=== PATIENT | male | born 1945 | race Two or more races ===

== ENCOUNTER → 2018-04-29 | Outpatient (CLI) | payer MEDICARE, MEDICAID | END | disposition home or self-care (01) | LOC: CVU 15:00 | PROVIDERS: ATTEND Family Medicine | DX: I70.203 Unspecified atherosclerosis of native arteries of extremities, bilateral legs (principal); I10 Essential (primary) hypertension; E78.5 Hyperlipidemia, unspecified | CPT/HCPCS: 93922; 93925 ==

== ENCOUNTER 2018-06-29 05:53 | Day surgery (SDC) | payer MEDICARE, MEDICAID ==
[2018-06-26 10:03] LABS: ANION GAP 9 mmol/L (5-15); CALCIUM 8.8 mg/dL (8.5-10.1); CHLORIDE 108 mmol/L (98-107); CREATININE 0.76 mg/dL (0.7-1.3)
[2018-06-26 10:11] LABS: BASOPHILS # (AUTO) 0.04 x10^3/uL (0-0.1); BASOPHILS % (AUTO) 1 % (0-1); EOSINOPHILS # (AUTO) 0.17 x10^3/uL (0-0.4); EOSINOPHILS % (AUTO) 2 % (1-7); LYMPHOCYTES # (AUTO) 2.15 x10^3/uL (1-3.4); LYMPHOCYTES % (AUTO) 24 % (22-44); MD NO; MEAN CORPUSCULAR HEMOGLOBIN 32.1 pg (27.5-34.5); MEAN CORPUSCULAR VOLUME 94.6 fL (81-97); MEAN PLATELET VOLUME 7.7 fL (7.4-10.4); MONOCYTES # (AUTO) 0.52 x10^3/uL (0.2-0.8); MONOCYTES % (AUTO) 6 % (2-9); NEUTROPHILS # (AUTO) 5.98 x10^3/uL (1.8-6.8); NEUTROPHILS % (AUTO) 68 % (42-75); PLATELET COUNT 459 x10^3/uL (130-400); RED BLOOD COUNT 4.56 x10^6/uL (4.38-5.82); RED CELL DISTRIBUTION WIDTH 13.9 % (9.4-14.8)
[~2018-06-29] VITALS: Ht 157.5 cm; Wt 65.6 kg
[~2018-06-29 05:53] MED LIST: CELEBREX PO; IBUP-1223 PO; LISI40TA PO; SIMV40TA3 PO
[2018-06-29 07:21] VITALS: BP 177/77
[2018-06-29] MEDS ORDERED: D5%-0.45% NACL 1,000 ML IV SCH (07:24)
[2018-06-29] MEDS ORDERED: FENTANYL PF 100 MCG/2ML ONE (08:10)
[2018-06-29] MEDS ORDERED: NITROGLYCERIN 5 MG/ML, 10ML ONE (08:11)
[2018-06-29] MEDS ORDERED: MIDAZOLAM 1 MG/ML, 5ML ONE (08:11)
[2018-06-29] MEDS ORDERED: FLUMAZENIL 0.1 MG/1 ML, 5ML ONE (08:11)
[2018-06-29] MEDS ORDERED: NALOXONE 1 MG/ML, 2ML ONE (08:11)
[2018-06-29] MEDS ORDERED: HEPARIN 1,000 UNITS/ML, 10ML ONE (08:11)
[2018-06-29] MEDS ORDERED: PROTAMINE SULFATE 10 MG/ML, 25ML ONE (08:11)
[2018-06-29] MEDS ORDERED: SODIUM CHLORIDE 0.9% 1,000 ML IV SCH (10:19)
[2018-06-29] MEDS ORDERED: hydrALAzine 20 MG/ML, 1ML IV PRN (10:30)
[2018-06-29] MEDS ORDERED: VISIPAQUE 270 MG/ML, 50ML BOTTLE ONE (12:00)
[2018-06-29] MEDS ORDERED: IBUPROFEN 800 MG TABLET PO SCH (16:00)
[2018-06-29] MEDS ORDERED: SIMVASTATIN 40 MG TABLET PO SCH (21:00)
[2018-06-30] MEDS ORDERED: TEMPLATE NON-FORMULARY MED. (Lisinopril** 40 MG) PO SCH (09:00)
== END 2018-06-29 14:00 | disposition home or self-care (01) ==
LOC: OUT 05:53
PROVIDERS: ATTEND Surgery
DX: I70.211 Atherosclerosis of native arteries of extremities with intermittent claudication, right leg (principal); E11.9 Type 2 diabetes mellitus without complications; I10 Essential (primary) hypertension; J45.909 Unspecified asthma, uncomplicated
CPT/HCPCS: 36415; 37225; 75630; 76937; 80048; 85025; 99156; 99157; C1714; C1725; C1751; C1760; C1769; C1884; C1894; C2623; J1644; J2250; J3010; Q9966; J2720; J2310